=== PATIENT | female | born 1995 | race American Indian/Alaskan Native ===

== ENCOUNTER 2018-08-31 15:56 | Emergency (ER) | payer SELFPAY ==
[2018-08-31 16:23] VITALS: BP 146/61
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
== END 2018-08-31 20:41 | disposition left against medical advice (07) ==
LOC: ED 15:56 → EEVIPCON 15:56 → ED 20:41
DX: R07.89 Other chest pain (principal); F12.10 Cannabis abuse, uncomplicated
CPT/HCPCS: 99281